=== PATIENT | male | born 1960 ===

== ENCOUNTER 2020-12-28 12:43 | Emergency (ER) | payer SELFPAY ==
[~2020-12-28] VITALS: Ht 180.3 cm; Wt 100.0 kg
[2020-12-28] MEDS ORDERED: NS 1,000 ML IV ONE ×2 (13:00→13:40)
[2020-12-28 13:25] LABS: HEMATOCRIT 47.1 % (42.0-52.0); HEMOGLOBIN 16.3 g/dl (13.5-17.5); LYMPH # 0.6 10^3/uL (1.5-5.0); LYMPH % 9.4 % (24.0-44.0); MEAN CORPUSCULAR HEMOGLOBIN 29.3 pg (27.0-33.0); MEAN CORPUSCULAR HGB CONC 34.6 g/dl (32.0-36.5); MEAN CORPUSCULAR VOLUME 84.6 fl (80.0-96.0); MONO # 0.5 10^3/uL (0.0-0.8); MONO % 7.6 % (2.0-8.0); NEUTROPHILS # 4.9 10^3/uL (1.5-8.5); NEUTROPHILS % 82.7 % (36.0-66.0); PLATELET COUNT, AUTOMATED 174 10^3/uL (150-450); RED BLOOD COUNT 5.57 10^6/uL (4.30-6.10)
[2020-12-28 13:44] LABS: HEMOGLOBIN A1c 11.4 %
[2020-12-28 13:58] LABS: ALBUMIN 2.5 GM/DL (3.2-5.2); BILIRUBIN,DIRECT 0.2 MG/DL (0.0-0.2); BILIRUBIN,TOTAL 0.5 MG/DL (0.2-1.0); TOTAL PROTEIN 6.2 GM/DL (6.4-8.2)
[2020-12-28] MEDS ORDERED: LOPERAMIDE 2 MG CAPLET PO ONE (14:40)
[2020-12-28] MEDS ORDERED: METF500T13 PO (15:22)
[2020-12-28] MEDS ORDERED: LOPE2TAB12 PO (15:22)
[2020-12-28] MEDS ORDERED: GLUCMIS7 XX (15:23)
[2020-12-28] MEDS ORDERED: glucometer strips (15:27)
[2020-12-28 16:16] VITALS: BP 151/71
[2020-12-29] MEDS ORDERED: UNRESOLVED CLARIFICATION ENTRY XX SCH (00:01)
== END 2020-12-28 16:43 | disposition home or self-care (01) ==
LOC: M ED 12:43
DX: E11.9 Type 2 diabetes mellitus without complications (principal); U07.1 COVID-19; I10 Essential (primary) hypertension